=== PATIENT | male | born 1970 | race Caucasian/White ===

== ENCOUNTER 2017-07-23 13:29 | Emergency (ER) | payer BC, OTHER ==
[~2017-07-23] VITALS: Ht 177.8 cm; Wt 90.7 kg
[2017-07-23 13:36] VITALS: BP_SYST 142
--- NOTE | 2017-07-23 13:39 | NUR ---
Patient to ER bed H2 to gown for evaluation. Side rails up. Report given to Alejandrina JARRETT.
--- NOTE | 2017-07-23 13:45 | NUR ---
Pt brought by , ambulatory, A&Ox4, pt c/o swelling on L sife of face and difficulty swallowing , pt states he was recently treated for tonsillitis at urgent care with penicillin but symptoms not worsenint, respirations even and unlabored, speaking in full sentences , no drooling noted.
--- NOTE | 2017-07-23 13:52 | NUR ---
Paulette Olguin [employer] CL[employer] at bedside examining patient
[2017-07-23] MEDS: HYDROcodone/ACETAMIN 5-325 MG TAB (NORCO/ VICODIN) PO ONE (14:22)
[2017-07-23] MEDS: cefTRIAXone 1 GM in LIDOCAINE 1%, 20 ML MDV 2.1 ML IM ONE (14:25)
[2017-07-23] MEDS: DEXAMETHASONE SOD PHOSPHATE 10 MG/ML VIAL IM ONE (14:25)
[2017-07-23] MEDS: KETOROLAC TROMETHAMINE 60 MG/2 ML VIAL IM ONE (14:26)
[2017-07-23 14:44] VITALS: BP_SYST 138
--- NOTE | 2017-07-23 14:46 | NUR ---
Patient given written and verbal discharge instructions and verbalizes understanding. ER MD discussed with patient the results and treatment provided. Patient in stable condition. ID arm band removed. Rx of Motrin and Prednisone given. Patient educated on pain management and to follow up with PMD. Pain Scale 4/10 tolerable for pt . Opportunity for questions provided and answered.
== END 2017-07-23 14:44 | disposition home or self-care (01) ==
LOC: SED 13:29
DX: R13.10 Dysphagia, unspecified (principal); J36 Peritonsillar abscess; R03.0 Elevated blood-pressure reading, without diagnosis of hypertension; F17.200 Nicotine dependence, unspecified, uncomplicated; Z71.6 Tobacco abuse counseling; Z88.5 Allergy status to narcotic agent
CPT/HCPCS: 96372; 99284; J0696; J1100; J1885; J2001

== ENCOUNTER 2018-01-06 11:29 | Emergency (ER) | payer OTHER ==
[~2018-01-06] VITALS: Ht 177.8 cm; Wt 90.7 kg
[2018-01-06 11:47] VITALS: BP_SYST 156
[2018-01-06] MEDS ORDERED: AMPICILLIN SODIUM/SULBACTAM NA 3 GM in NS 100 ML IV ONE (12:45)
[2018-01-06] MEDS ORDERED: AMPICILLIN SODIUM/SULBACTAM NA 3 GM VIAL ONE (13:02)
[2018-01-06 13:45] VITALS: BP_SYST 142
== END 2018-01-06 13:45 | disposition home or self-care (01) ==
LOC: SED 11:29
DX: K04.7 Periapical abscess without sinus (principal); L03.211 Cellulitis of face; Z88.5 Allergy status to narcotic agent
CPT/HCPCS: 96365; 99284; J0295

== ENCOUNTER 2023-08-18 09:34 | Emergency (ER) | payer MEDICAID, OTHER ==
[~2023-08-18] VITALS: Ht 177.8 cm; Wt 93.0 kg
[2023-08-18 10:24] VITALS: BP_SYST 148; PULSE 85; RESP 19; TEMP 98; O2SAT 99
[2023-08-18] MEDS: KETOROLAC TROMETHAMINE 60 MG/2 ML VIAL IM ONE (10:42)
[2023-08-18] MEDS ORDERED: MELO-89 PO (11:03)
[2023-08-18 11:25] VITALS: BP_SYST 144; PULSE 82; RESP 19; TEMP 98.2; O2SAT 98
== END 2023-08-18 11:10 | disposition home or self-care (01) ==
LOC: SED 09:34
DX: S83.412A Sprain of medial collateral ligament of left knee, initial encounter (principal); Z88.5 Allergy status to narcotic agent; Z79.899 Other long term (current) drug therapy; X50.0XXA Overexertion from strenuous movement or load, initial encounter; Y93.B2 Activity, push-ups, pull-ups, sit-ups; Y92.89 Other specified places as the place of occurrence of the external cause; Y99.8 Other external cause status
CPT/HCPCS: 99283; 29505; 73564; 96372; J1885